=== PATIENT | female | born 1950 | race Caucasian/White ===

== ENCOUNTER → 2016-07-15 | Outpatient (CLI) | payer MEDICARE ==
--- NOTE | 2016-07-16 07:34 | MM ---
Reason for exam: screening (asymptomatic). Last mammogram was performed 9 years and 3 months ago. History: Patient is postmenopausal and is nulliparous. Family history of breast cancer in aunt. Benign excisional biopsy of the left breast. Physical Findings: A clinical breast exam by your physician is recommended on an annual basis and results should be correlated with mammographic findings. MG 3D Screening Mammo W/Cad Bilateral CC and MLO view(s) were taken. Prior study comparison: April 01, 2007, bilateral screening mammogram w/CAD. May 02, 2005, bilateral screening mammogram w/CAD. There are scattered fibroglandular densities. Asymmetric breast tissue in the right breast is stable. There is no discrete abnormality. ASSESSMENT: Negative, BI-RAD 1 RECOMMENDATION: Routine screening mammogram of both breasts in 1 year.
== END ==
LOC: RADMAMWWP 09:05
PROVIDERS: ATTEND Internal Medicine Geriatric Medicine
DX: Z12.31 Encounter for screening mammogram for malignant neoplasm of breast (principal)
CPT/HCPCS: 77063; G0202

== ENCOUNTER → 2017-07-16 | Outpatient (CLI) | payer MEDICARE ==
--- NOTE | 2017-07-16 10:55 | XR ---
EXAMINATION TYPE: XR Hip Complete RT DATE OF EXAM: 07/16/2017 COMPARISON: NONE HISTORY: Pain TECHNIQUE: 2 views submitted FINDINGS: There is no evidence of erosive change or acute fracture. Mild axial narrowing of the joint space. IMPRESSION: 1. Mild arthritic change. If symptoms persist consider MRI.
== END | disposition home or self-care (01) ==
LOC: RADXRMAIN 10:21
PROVIDERS: ATTEND Nurse Practitioner Family
DX: M16.11 Unilateral primary osteoarthritis, right hip (principal)
CPT/HCPCS: 73502

== ENCOUNTER → 2017-07-24 | Outpatient (CLI) | payer MEDICARE ==
--- NOTE | 2017-07-24 11:10 | US ---
EXAMINATION TYPE: US pelvic complete DATE OF EXAM: 07/24/2017 COMPARISON: NONE CLINICAL HISTORY: R10.84 Generalized abdominal pain. RLQ pain TECHNIQUE: Transabdominal (TA). Date of LMP: post menopausal EXAM MEASUREMENTS: Uterus: Not well seen Endometrial Stripe: not identified cm Right Ovary: not identified cm Left Ovary: not identified cm patient is nulliparous and has RLQ pain. Patient did not want transvaginal exam. 1. Uterus: not well visualized 2. Endometrium: not identified 3. Right Ovary: not identified 4. Left Ovary: not identified 5. Bilateral Adnexa: wnl 6. Posterior cul-de-sac: no free fluid * scanned RLQ over pain with and without valsalva, no definite abnormality noted. IMPRESSION: Limited exam as described, no significant abnormalities evident.
== END ==
LOC: RADUSWWP 07:22
PROVIDERS: ATTEND Internal Medicine Geriatric Medicine
DX: R10.84 Generalized abdominal pain (principal)
CPT/HCPCS: 76856

== ENCOUNTER 2017-08-01 17:10 | Emergency (ER) | payer MEDICARE ==
[2017-08-01 17:16] VITALS: TEMP 98.3
[2017-08-01] MEDS ORDERED: ONDANSETRON 4 MG/2 ML VIAL IVP STA (17:26)
[2017-08-01] MEDS ORDERED: SODIUM CHLORIDE 0.9% 1,000 ML IV ONE (17:26)
[2017-08-01] MEDS ORDERED: KETOROLAC 30 MG/ML 1 ML VIAL IVP STA (17:26)
--- NOTE | 2017-08-01 17:44 | ED ---
Abdominal Pain HPI - General Chief Complaint: Abdominal Pain Stated Complaint: poss kidney stone Time Seen by Provider: 08/01/17 17:16 Source: patient Mode of arrival: ambulatory Limitations: no limitations - History of Present Illness Initial Comments: Is a 66-year-old female who presents emergency department for right back and right lower quadrant abdominal pain. She states that she's been having issues with right lower quadrant abdominal pain for a couple of weeks however did not have anything in her back. She states that she did have a sudden onset of right -sided flank and lower back pain earlier today. She tried taking a [place] without any relief of her symptoms. She states that she's also feels very nauseated however has not vomited. She denies any diarrhea. She denies a history of kidney stones. She states that she's had an ultrasound done as an outpatient which was unremarkable. Also had an x-ray of her hip which was unremarkable. She denies any trauma to the area. No other acute complaints at this time. - Related Data Home Medications Medication Instructions Recorded Confirmed Albuterol Inhaler [Ventolin Hfa 1 - 2 puff INHALATION RT-Q6H PRN 08/01/17 Inhaler] Alendronate Sodium [Fosamax] 70 mg PO CARDONA 08/01/17 08/01/17 Atorvastatin [Lipitor] 80 mg PO HS 08/01/17 08/01/17 Budesonide/Formoterol Fumarate 2 puff INHALATION RT-BID 08/01/17 08/01/17 [Symbicort 160-4.5 Mcg Inhaler] Diltiazem HCl [Diltiazem 24Hr ER] 180 mg PO Q24H 08/01/17 08/01/17 Levothyroxine Sodium [Synthroid] 100 mcg PO DAILY 08/01/17 08/01/17 Previous Rx's Medication Instructions Recorded HYDROcodone/APAP 5-325MG [[place] 1 - 2 tab PO Q6HR PRN #10 tab 08/01/17 5-325] Allergies Allergy/AdvReac Type Severity Reaction Status Date / Time No Known Allergies Allergy Verified 08/01/17 17:22 Review of Systems ROS Statement: Those systems with pertinent positive or pertinent negative responses have been documented in the HPI. ROS Other: All systems not noted in ROS Statement are negative. Past Medical History Past Medical History: Hyperlipidemia, Thyroid Disorder History of Any Multi-Drug Resistant Organisms: None Reported Additional Past Surgical History / Comment(s): thyroidectomy Past Psychological History: No Psychological Hx Reported Smoking Status: Never smoker Past Alcohol Use History: None Reported Past Drug Use History: None Reported General Exam - General Exam Comments Initial Comments: Constitutional: Awake alert appears in mild distress Head: Normocephalic atraumatic Eyes: no conjunctival injection No scleral icterus EOMI Neck: No JVD Supple Heart: Regular rate rhythm normal S1-S2 no murmurs Lungs: Clear to auscultation bilaterally No wheezing No rales Abdomen: Soft nondistended nontender Extremities: Non edematous DP pulses intact Radial pulses intact Neuro: A&Ox3 No focal neurologic deficits Psych: Appropriate mood and affect Limitations: no limitations Course Vital Signs 08/01/17 08/01/17 17:13 18:59 Temperature 98.3 F Pulse Rate 79 66 Respiratory 22 18 Rate Blood Pressure 179/79 146/64 O2 Sat by Pulse 96 95 Oximetry Medical Decision Making - Medical Decision Making This is a 66-year-old female who presents emergency department for right lower back pain and right lower abdominal pain. CT of the abdomen was unremarkable for kidney stone. UA was negative. The rest of blood work is unremarkable. There was note of an L1 compression fracture. I'm concerned that her symptoms may be from nerve impingement. She was improved after morphine. I'm going to send her home on [facility]. She states to speak with Dr. Bateman at home about further imaging or testing regarding this compression fracture in her pain. Can return for any worsening or changing symptoms. All questions were answered. - Lab Data Result diagrams: 08/01/17 17:36 08/01/17 17:36 Lab Results 08/01/17 08/01/17 08/01/17 Range/Units 17:36 17:36 17:36 WBC 7.2 (3.8-10.6) k/uL RBC 4.77 (3.80-5.40) m/uL Hgb 13.3 (11.4-16.0) gm/dL Hct 40.9 (34.0-46.0) % MCV 85.7 (80.0-100.0) fL MCH 27.9 (25.0-35.0) pg MCHC 32.5 (31.0-37.0) g/dL RDW 14.0 (11.5-15.5) % Plt Count 297 (150-450) k/uL Neutrophils % 73 % Lymphocytes % 18 % Monocytes % 5 % Eosinophils % 2 % Basophils % 1 % Neutrophils # 5.3 (1.3-7.7) k/uL Lymphocytes # 1.3 (1.0-4.8) k/uL Monocytes # 0.3 (0-1.0) k/uL Eosinophils # 0.2 (0-0.7) k/uL Basophils # 0.1 (0-0.2) k/uL Sodium 142 (137-145) mmol/L Potassium 4.4 (3.5-5.1) mmol/L Chloride 106 (98-107) mmol/L Carbon Dioxide 25 (22-30) mmol/L Anion Gap 11 mmol/L BUN 22 H (7-17) mg/dL Creatinine 0.70 (0.52-1.04) mg/dL Est GFR (CKD-EPI)AfAm >90 (>60 ml/min/1.73 sqM) Est GFR (CKD-EPI)NonAf >90 (>60 ml/min/1.73 sqM) Glucose 115 H (74-99) mg/dL Calcium 9.2 (8.4-10.2) mg/dL Total Bilirubin 0.4 (0.2-1.3) mg/dL AST 25 (14-36) U/L ALT 28 (9-52) U/L Alkaline Phosphatase 88 (38-126) U/L Total Protein 7.1 (6.3-8.2) g/dL Albumin 4.0 (3.5-5.0) g/dL Urine Color Yellow Urine Appearance Clear (Clear) Urine pH 5.0 (5.0-8.0) Ur Specific Edison 1.019 (1.001-1.035) Urine Protein Negative (Negative) Urine Glucose (UA) Negative (Negative) Urine Ketones Negative (Negative) Urine Blood Negative (Negative) Urine Nitrite Negative (Negative) Urine Bilirubin Negative (Negative) Urine Urobilinogen <2.0 (<2.0) mg/dL Ur Leukocyte Esterase Negative (Negative) Disposition Clinical Impression: Abdominal pain Disposition: HOME SELF-CARE Condition: Stable Instructions: Vertebral Compression Fracture (ED), Abdominal Pain (ED) Prescriptions: HYDROcodone/APAP 5-325MG [[place] 5-325] 1 - 2 tab PO Q6HR PRN #10 tab PRN Reason: Pain Referrals: Elpidio Bateman MD [Primary Care Provider] - 1-2 days
[2017-08-01 17:49] LABS: Basophils # (A) 0.1 k/uL (0-0.2); Basophils % (A) 1 %; Eosinophils # (A) 0.2 k/uL (0-0.7); Eosinophils % (A) 2 %; HCT 40.9 % (34.0-46.0); HGB 13.3 gm/dL (11.4-16.0); Lymphocytes # (A) 1.3 k/uL (1.0-4.8); Lymphocytes % (A) 18 %; MCH 27.9 pg (25.0-35.0); MCHC 32.5 g/dL (31.0-37.0); MCV 85.7 fL (80.0-100.0); Mean Platelet Volume 7.6; Monocytes # (A) 0.3 k/uL (0-1.0); Monocytes % (A) 5 %; Neutrophils # (A) 5.3 k/uL (1.3-7.7); Neutrophils % (A) 73 %; Platelet Count 297 k/uL (150-450); RBC 4.77 m/uL (3.80-5.40); WBC 7.2 k/uL (3.8-10.6)
[2017-08-01 17:50] LABS: Appearance,Urine Clear (Clear); Bilirubin,Urine Negative (Negative); Blood,Urine Negative (Negative); Color,Urine Yellow; Glucose,Urine (UA) Negative (Negative); Ketones,Urine Negative (Negative); Leukocyte Esterase,Urine Negative (Negative); Nitrite,Urine Negative (Negative); Protein,Urine Negative (Negative); Specific Gravity,Urine 1.019 (1.001-1.035); Urobilinogen,Urine <2.0 mg/dL (<2.0)
[2017-08-01 18:14] LABS: ALT 28 U/L (9-52); AST 25 U/L (14-36); Alkaline Phosphatase 88 U/L (38-126); Anion Gap 11 mmol/L; Blood Urea Nitrogen 22 mg/dL (7-17); Calcium 9.2 mg/dL (8.4-10.2); Carbon Dioxide 25 mmol/L (22-30); Chloride 106 mmol/L (98-107); Glucose 115 mg/dL (74-99); Potassium 4.4 mmol/L (3.5-5.1); Sodium 142 mmol/L (137-145); Total Bilirubin 0.4 mg/dL (0.2-1.3); Total Protein 7.1 g/dL (6.3-8.2)
--- NOTE | 2017-08-01 18:36 | CT ---
EXAMINATION TYPE: CT abdomen pelvis wo con DATE OF EXAM: 08/01/2017 COMPARISON: NONE HISTORY: Right side flank pain CT DLP: 921 mGycm Automated exposure control for dose reduction was used. TECHNIQUE: Helical acquisition of images was performed from the lung bases through the pelvis. FINDINGS: Lung bases are clear. There is no pleural effusion. Heart size is normal. There are small hiatal olvin ia. There are clips at the gastroesophageal junction. Liver shows no focal defect. Bile ducts are not dilated. There are clips from cholecystectomy. Spleen appears normal. There is no pancreatic mass. Abdominal aorta is atheromatous. There is some bulkiness of the right adrenal gland. Kidneys have normal size. 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 There is sli ght fullness of the left renal pelvis but the ureters do not appear dilated. There is also some fulln ess of the right renal pelvis. The right ureter is not dilated. There are phleboliths in the pelvis. There is a 2 cm calcified uterine fibroid. There is no free fluid in the pelvis. Bladder distends smo othly. I see no definite ureteral stone. I see no intestinal wall thickening. There are no dilated loops. Appendix is not definitely seen. The re is no sign of appendicitis. I see no pelvic mass. There is mild lumbar dextroscoliosis. There are spondylotic changes in the lumb ar spine. There is 10% depression of the superior plate of L1 consistent with an old fracture. IMPRESSION: ATHEROSCLEROTIC VASCULAR DISEASE. NO SIGN OF APPENDICITIS. THERE IS SOME FULLNESS OF THE RENAL COLLEC TING SYSTEMS BUT NO EVIDENCE OF A RENAL OR URETERAL CALCULUS. URETERS ARE NOT DILATED. CALCIFIED UTERINE FIBROID. OLD MILD L1 COMPRESSION FRACTURE. THERE IS SOME FULLNESS OF THE RIGHT ADRE NAL GLAND CONSISTENT WITH HYPERPLASIA. Hiatal hernia.
[2017-08-01] MEDS ORDERED: MORPHINE SULFATE/PF 10MG/10ML VL IVP STA ×2 (18:47→18:49)
[2017-08-01 19:00] VITALS: BP 146/64; PULSE 66; RESP 18
== END 2017-08-01 19:55 | disposition home or self-care (01) ==
LOC: EC 17:10
DX: R10.31 Right lower quadrant pain (principal); M54.5 Low back pain; R11.0 Nausea; E07.9 Disorder of thyroid, unspecified; E78.5 Hyperlipidemia, unspecified; Z79.51 Long term (current) use of inhaled steroids; Z79.899 Other long term (current) drug therapy
CPT/HCPCS: 99284; 96374; 96375 ×2; 96361; 36415; 80053; 85025; 81003; 74176; J2405; J1885; J2270

== ENCOUNTER → 2018-01-11 | Outpatient (CLI) | payer MEDICARE ==
--- NOTE | 2018-01-11 09:42 | MM ---
Reason for exam: screening (asymptomatic). Last mammogram was performed 1 year and 6 months ago. History: Patient is postmenopausal and is nulliparous. Family history of breast cancer in aunt. Benign excisional biopsy of the left breast. Physical Findings: A clinical breast exam by your physician is recommended on an annual basis and results should be correlated with mammographic findings. MG Screening Mammo w CAD Bilateral CC and MLO view(s) were taken. Prior study comparison: July 15, 2016, bilateral MG 3d screening mammo w/cad. April 01, 2007, bilateral screening mammogram w/CAD. There are scattered fibroglandular densities. There is no discrete abnormality. No significant changes when compared with prior studies. ASSESSMENT: Negative, BI-RAD 1 RECOMMENDATION: Routine screening mammogram of both breasts in 1 year.
--- NOTE | 2018-01-11 13:36 | BD ---
EXAMINATION TYPE: Axial Bone Density DATE OF EXAM: 01/11/2018 COMPARISON: 2006 CLINICAL HISTORY: age related osteoporosis Height: 5 3 1/2 Weight: 177 FRAX RISK QUESTIONS: Secondary Osteoporosis: 3. Menopause before 45: y RISK FACTORS HISTORY OF: Postmenopausal woman: y MEDICATIONS: Thyroid Medications: Which medication: Synthroid How Lon years Osteoporosis Medications: Which medication: Fosamax How Lon years Additional Medications: cholesterol , heart Additional History: EXAM MEASUREMENTS: Bone mineral densitometry was performed using the [employer] (Proprietary) System. Bone mineral density as measured about the Lumbar spine is: ----- L1-L4(G/cm2): 1.061 T Score Values are as follows: ----- L2: -1.1 ----- L3: -0.4 ----- L4: -0.9 ----- L1-L4: -1.0 Bone mineral density has: Increased 13.1% since study of: 04/01/07 Bone mineral density about the R hip (g/cm2): 0.740 Bone mineral density about the L hip (g/cm2): 0.779 T Score values are as follows: -----R Neck: -1.1 -----L Neck: -1.9 -----R Total: -2.3 -----L Total: -1.7 Bone mineral density has: Decreased -4.2% since study of: 04/01/2007 IMPRESSION: Osteopenia NOTE: T-SCORE=SD OF THE YOUNG ADULT MEAN.
== END | disposition home or self-care (01) ==
LOC: RADMAMWWP 06:46
PROVIDERS: ATTEND Internal Medicine Geriatric Medicine
DX: Z12.31 Encounter for screening mammogram for malignant neoplasm of breast (principal); M81.0 Age-related osteoporosis without current pathological fracture; M85.80 Other specified disorders of bone density and structure, unspecified site
CPT/HCPCS: 77067; 77080

== ENCOUNTER 2018-01-17 13:17 | Emergency (ER) | payer MEDICARE ==
[2018-01-17 13:26] VITALS: TEMP 98.6
[2018-01-17 13:42] VITALS: RESP 18
[2018-01-17] MEDS ORDERED: IPRATROPIUM-ALBUTEROL 3 ML NEB INHALATION STA (13:46)
--- NOTE | 2018-01-17 13:49 | ED ---
General Adult HPI - General Chief complaint: Shortness of Breath Stated complaint: SOB Time Seen by Provider: 01/17/18 13:42 Source: patient, RN notes reviewed Mode of arrival: wheelchair Limitations: no limitations - History of Present Illness Initial comments: Patient is a pleasant 67-year-old female presenting to the emergency Department with complaints of dyspnea. Onset was last night. Symptoms continue or worsen today. Patient does have some discomfort of her left ribs. Patient states discomfort is with taking deep breaths or movement only. Patient did have a fall there 5 days ago. Patient states discomfort was only mild however seems worse since yesterday. Mild cough. No fevers. No anterior chest discomfort. - Related Data Home Medications Medication Instructions Recorded Confirmed Albuterol Inhaler [Ventolin Hfa 1 - 2 puff INHALATION RT-Q6H PRN 08/01/17 Inhaler] Alendronate Sodium [Fosamax] 70 mg PO CARDONA 08/01/17 01/17/18 Atorvastatin [Lipitor] 80 mg PO HS 08/01/17 01/17/18 Budesonide/Formoterol Fumarate 2 puff INHALATION RT-BID 08/01/17 01/17/18 [Symbicort 160-4.5 Mcg Inhaler] Diltiazem HCl [Diltiazem 24Hr ER] 180 mg PO DAILY 08/01/17 01/17/18 Levothyroxine Sodium [Synthroid] 100 mcg PO DAILY 08/01/17 01/17/18 Aspirin [Adult Low Dose Aspirin EC] 81 mg PO DAILY 01/17/18 01/17/18 Calcium Carbonate/Vitamin D3 1 cap PO DAILY 01/17/18 01/17/18 [Calcium 600-Vit D3 500 Softgel] Gabapentin [Neurontin] 200 mg PO BID 01/17/18 01/17/18 Previous Rx's Medication Instructions Recorded Azithromycin [Zithromax Z-pack] 250 mg PO DIRECTED #6 tab 01/17/18 Allergies Allergy/AdvReac Type Severity Reaction Status Date / Time No Known Allergies Allergy Verified 01/17/18 14:21 Review of Systems ROS Statement: Those systems with pertinent positive or pertinent negative responses have been documented in the HPI. ROS Other: All systems not noted in ROS Statement are negative. Constitutional: Denies: fever Eyes: Denies: eye pain ENT: Denies: ear pain Respiratory: Reports: dyspnea Cardiovascular: Denies: palpitations Endocrine: Denies: fatigue Gastrointestinal: Denies: abdominal pain Genitourinary: Denies: dysuria Musculoskeletal: Denies: back pain Skin: Denies: lesions Past Medical History Past Medical History: COPD, Hyperlipidemia, Thyroid Disorder History of Any Multi-Drug Resistant Organisms: None Reported Additional Past Surgical History / Comment(s): thyroidectomy Past Psychological History: No Psychological Hx Reported Smoking Status: Never smoker Past Alcohol Use History: None Reported Past Drug Use History: None Reported General Exam Limitations: no limitations General appearance: alert, in no apparent distress Head exam: Present: atraumatic, normocephalic Eye exam: Present: normal appearance Neck exam: Present: normal inspection Respiratory exam: Present: normal lung sounds bilaterally, chest wall tenderness (Mild tenderness left lateral ribs with some ecchymosis) Cardiovascular Exam: Present: regular rate, normal rhythm Expanded Peripheral pulses: 2+: Radial (R), Radial (L), Dorsalis Pedis (R), Dorsalis Pedis (L) GI/Abdominal exam: Present: soft. Absent: tenderness Extremities exam: Present: pedal edema. Absent: calf tenderness Neurological exam: Present: alert Psychiatric exam: Present: normal affect, normal mood Skin exam: Present: normal color Course Vital Signs 01/17/18 01/17/18 01/17/18 13:23 13:38 13:43 Temperature 98.6 F Pulse Rate 85 83 Respiratory 16 18 18 Rate Blood Pressure 124/77 143/85 O2 Sat by Pulse 94 L 98 Oximetry 01/17/18 01/17/18 14:02 14:14 Temperature Pulse Rate 79 79 Respiratory Rate Blood Pressure O2 Sat by Pulse Oximetry EKG Findings - EKG Comments: EKG Findings:: Sinus rhythm at 78. NM 110. QRS 134. QT 406. QTc 462. Right axis. Rate bundle-branch block. No acute ST change. Medical Decision Making - Medical Decision Making Patient reevaluated and improved. No dyspnea at this time. Patient updated on results. Patient is comfortable with discharge home. Patient does not feel she needs steroids. - Lab Data Result diagrams: 01/17/18 14:00 01/17/18 14:00 Lab Results 01/17/18 01/17/18 01/17/18 Range/Units 14:00 14:00 14:00 WBC 6.5 (3.8-10.6) k/uL RBC 4.79 (3.80-5.40) m/uL Hgb 12.6 (11.4-16.0) gm/dL Hct 41.6 (34.0-46.0) % MCV 86.8 (80.0-100.0) fL MCH 26.4 (25.0-35.0) pg MCHC 30.4 L (31.0-37.0) g/dL RDW 14.5 (11.5-15.5) % Plt Count 235 (150-450) k/uL Neutrophils % 69 % Lymphocytes % 20 % Monocytes % 6 % Eosinophils % 2 % Basophils % 1 % Neutrophils # 4.5 (1.3-7.7) k/uL Lymphocytes # 1.3 (1.0-4.8) k/uL Monocytes # 0.4 (0-1.0) k/uL Eosinophils # 0.1 (0-0.7) k/uL Basophils # 0.1 (0-0.2) k/uL PT (9.0-12.0) sec INR (<1.2) APTT (22.0-30.0) sec Sodium 141 (137-145) mmol/L Potassium 4.4 (3.5-5.1) mmol/L Chloride 108 H (98-107) mmol/L Carbon Dioxide 24 (22-30) mmol/L Anion Gap 9 mmol/L BUN 23 H (7-17) mg/dL Creatinine 0.97 (0.52-1.04) mg/dL Est GFR (CKD-EPI)AfAm 70 (>60 ml/min/1.73 sqM) Est GFR (CKD-EPI)NonAf 61 (>60 ml/min/1.73 sqM) Glucose 117 H (74-99) mg/dL Calcium 8.7 (8.4-10.2) mg/dL Total Bilirubin 0.3 (0.2-1.3) mg/dL AST 23 (14-36) U/L ALT 20 (9-52) U/L Alkaline Phosphatase 86 (38-126) U/L Total Creatine Kinase 147 H (30-135) U/L CK-MB (CK-2) 2.1 (0.0-2.4) ng/mL CK-MB (CK-2) Rel Index 1.4 Troponin I <0.012 (0.000-0.034) ng/mL NT-Pro-B Natriuret Pep pg/mL Total Protein 6.4 (6.3-8.2) g/dL Albumin 3.6 (3.5-5.0) g/dL 01/17/18 01/17/18 Range/Units 14:00 14:00 WBC (3.8-10.6) k/uL RBC (3.80-5.40) m/uL Hgb (11.4-16.0) gm/dL Hct (34.0-46.0) % MCV (80.0-100.0) fL MCH (25.0-35.0) pg MCHC (31.0-37.0) g/dL RDW (11.5-15.5) % Plt Count (150-450) k/uL Neutrophils % % Lymphocytes % % Monocytes % % Eosinophils % % Basophils % % Neutrophils # (1.3-7.7) k/uL Lymphocytes # (1.0-4.8) k/uL Monocytes # (0-1.0) k/uL Eosinophils # (0-0.7) k/uL Basophils # (0-0.2) k/uL PT 9.7 (9.0-12.0) sec INR 1.0 (<1.2) APTT 22.2 (22.0-30.0) sec Sodium (137-145) mmol/L Potassium (3.5-5.1) mmol/L Chloride (98-107) mmol/L Carbon Dioxide (22-30) mmol/L Anion Gap mmol/L BUN (7-17) mg/dL Creatinine (0.52-1.04) mg/dL Est GFR (CKD-EPI)AfAm (>60 ml/min/1.73 sqM) Est GFR (CKD-EPI)NonAf (>60 ml/min/1.73 sqM) Glucose (74-99) mg/dL Calcium (8.4-10.2) mg/dL Total Bilirubin (0.2-1.3) mg/dL AST (14-36) U/L ALT (9-52) U/L Alkaline Phosphatase (38-126) U/L Total Creatine Kinase (30-135) U/L CK-MB (CK-2) (0.0-2.4) ng/mL CK-MB (CK-2) Rel Index Troponin I (0.000-0.034) ng/mL NT-Pro-B Natriuret Pep 191 pg/mL Total Protein (6.3-8.2) g/dL Albumin (3.5-5.0) g/dL - Radiology Data Radiology results: image reviewed (Left chest x-ray and rib x-ray shows no definitive fracture. Minimal infiltrate left base.) Disposition Clinical Impression: Pneumonia Disposition: HOME SELF-CARE Condition: Stable Instructions: Pneumonia (ED) Additional Instructions: Please follow-up to primary care physician in the next day or 2 for recheck. Return for fevers, difficult to breathing, increased pain, worsening or change in symptoms or other concerns. Prescriptions: Azithromycin [Zithromax Z-pack] 250 mg PO DIRECTED #6 tab Is patient prescribed a controlled substance at d/c from ED?: No Referrals: Elpidio Bateman MD [Primary Care Provider] - 1-2 days Time of Disposition: 15:09
[2018-01-17 14:16] LABS: Basophils # (A) 0.1 k/uL (0-0.2); Basophils % (A) 1 %; Eosinophils # (A) 0.1 k/uL (0-0.7); Eosinophils % (A) 2 %; HCT 41.6 % (34.0-46.0); HGB 12.6 gm/dL (11.4-16.0); Lymphocytes # (A) 1.3 k/uL (1.0-4.8); Lymphocytes % (A) 20 %; MCH 26.4 pg (25.0-35.0); MCHC 30.4 g/dL (31.0-37.0); MCV 86.8 fL (80.0-100.0); Mean Platelet Volume 6.9; Monocytes # (A) 0.4 k/uL (0-1.0); Monocytes % (A) 6 %; Neutrophils # (A) 4.5 k/uL (1.3-7.7); Neutrophils % (A) 69 %; Platelet Count 235 k/uL (150-450); RBC 4.79 m/uL (3.80-5.40); RDW 14.5 % (11.5-15.5); WBC 6.5 k/uL (3.8-10.6)
[2018-01-17 14:26] LABS: Albumin 3.6 g/dL (3.5-5.0); Calcium 8.7 mg/dL (8.4-10.2); Potassium 4.4 mmol/L (3.5-5.1); Total Bilirubin 0.3 mg/dL (0.2-1.3); Total Protein 6.4 g/dL (6.3-8.2)
[2018-01-17 14:30] LABS: Partial Thromboplastin Time 22.2 sec (22.0-30.0); Prothrombin Time 9.7 sec (9.0-12.0)
[2018-01-17 14:36] LABS: Creatine Kinase 147 U/L (30-135)
[2018-01-17 14:47] LABS: Creatine Kinase MB 2.1 ng/mL (0.0-2.4); Troponin I <0.012 ng/mL (0.000-0.034)
--- NOTE | 2018-01-17 15:02 | XR ---
EXAMINATION TYPE: XR chest 2V DATE OF EXAM: 01/17/2018 COMPARISON: NONE HISTORY: Left rib pain. Short of breath TECHNIQUE: Frontal and lateral views of the chest are obtained. FINDINGS: Heart and mediastinum are within normal limits. There is no heart failure. Costophrenic an gles are clear. There are chest leads. The bony thorax is intact. There is slight coarsening the lung markings at the left lung base. IMPRESSION: Minimal interstitial infiltrate in the left lower lobe at the lung base. No rib fracture seen. Normal heart.
--- NOTE | 2018-01-17 15:03 | XR ---
EXAMINATION TYPE: XR ribs LT DATE OF EXAM: 01/17/2018 COMPARISON: NONE HISTORY: Left rib pain TECHNIQUE: 4 views FINDINGS: There is no pleural effusion or pneumothorax. I see no rib fracture. There is minimal inter stitial density at the left lung base. IMPRESSION: Minimal interstitial density. No rib fracture seen.
[2018-01-17] MEDS ORDERED: AZITHROMYCIN 500 MG TAB PO STA (15:10)
[2018-01-17 15:24] VITALS: BP 127/71; PULSE 73
== END 2018-01-17 15:24 | disposition home or self-care (01) ==
LOC: EC 13:17
DX: J18.9 Pneumonia, unspecified organism (principal); J44.0 Chronic obstructive pulmonary disease with (acute) lower respiratory infection; E78.5 Hyperlipidemia, unspecified; Z79.51 Long term (current) use of inhaled steroids; Z79.82 Long term (current) use of aspirin; Z79.899 Other long term (current) drug therapy
CPT/HCPCS: 36415; 71046; 80053; 82550; 82553; 83880; 84484; 85025; 85610; 85730; 93005; 94640; 99285

== ENCOUNTER 2018-02-20 14:56 | Inpatient (IN) | payer MEDICARE ==
[2018-02-20] MEDS ORDERED: ASPIRIN 81 MG PO STA (15:32)
--- NOTE | 2018-02-20 15:34 | ED ---
Chest Pain HPI - General Chief Complaint: Chest Pain Stated Complaint: Chest pain Time Seen by Provider: 02/20/18 15:17 Source: patient, RN notes reviewed Mode of arrival: ambulatory Limitations: no limitations - History of Present Illness Initial Comments: This is a 67-year-old female presents with complaints of shortness of breath exertional dyspnea is been getting progressively worse this past week. She also complains of increased edema to her lower extremities. He also had chest pain across the anterior chest with some radiation to left shoulder. She is unable to quantify the pain any more than a discomfort. No fevers chills nausea vomiting sweats no cough no phlegm production. The patient has just recently got back from a trip to [place]. She's had several other shorter trips by automobile also recently. MD Complaint: chest pain, other - Related Data Home Medications Medication Instructions Recorded Confirmed Albuterol Inhaler [Ventolin Hfa 1 - 2 puff INHALATION RT-Q6H PRN 08/01/17 Inhaler] Alendronate Sodium [Fosamax] 70 mg PO CARDONA 08/01/17 02/20/18 Atorvastatin [Lipitor] 80 mg PO HS 08/01/17 02/20/18 Budesonide/Formoterol Fumarate 2 puff INHALATION RT-BID 08/01/17 02/20/18 [Symbicort 160-4.5 Mcg Inhaler] Diltiazem HCl [Diltiazem 24Hr ER] 180 mg PO DAILY 08/01/17 02/20/18 Levothyroxine Sodium [Synthroid] 100 mcg PO DAILY 08/01/17 02/20/18 Aspirin [Adult Low Dose Aspirin EC] 81 mg PO DAILY 01/17/18 02/20/18 Calcium Carbonate/Vitamin D3 1 cap PO DAILY 01/17/18 02/20/18 [Calcium 600-Vit D3 500 Softgel] Gabapentin [Neurontin] 200 mg PO BID 01/17/18 02/20/18 Allergies Allergy/AdvReac Type Severity Reaction Status Date / Time No Known Allergies Allergy Verified 02/20/18 15:34 Review of Systems ROS Statement: Those systems with pertinent positive or pertinent negative responses have been documented in the HPI. ROS Other: All systems not noted in ROS Statement are negative. EKG Findings - EKG Results: EKG: interpreted by ANDRA, sinus rhythm (Sinus rhythm a 73. Interval 120 QRS duration 126 QT since QTC 460/458 red bundle-branch block left posterior fascicular block this is compared with an EKG dated ) Past Medical History Past Medical History: COPD, Hyperlipidemia, Thyroid Disorder History of Any Multi-Drug Resistant Organisms: None Reported Additional Past Surgical History / Comment(s): thyroidectomy Past Psychological History: No Psychological Hx Reported Smoking Status: Never smoker Past Alcohol Use History: None Reported Past Drug Use History: None Reported General Exam - General Exam Comments Initial Comments: This is a well-developed well-nourished awake alert oriented 3 female Limitations: no limitations General appearance: alert, in no apparent distress Head exam: Present: atraumatic, normocephalic, normal inspection Eye exam: Present: normal appearance, PERRL, EOMI. Absent: scleral icterus, conjunctival injection, periorbital swelling ENT exam: Present: normal exam, mucous membranes moist Neck exam: Present: normal inspection. Absent: tenderness, meningismus, lymphadenopathy Respiratory exam: Present: decreased breath sounds. Absent: respiratory distress, wheezes, rales, rhonchi, stridor Cardiovascular Exam: Present: regular rate, normal rhythm, normal heart sounds. Absent: systolic murmur, diastolic murmur, rubs, gallop, clicks GI/Abdominal exam: Present: soft, normal bowel sounds. Absent: distended, tenderness, guarding, rebound, rigid Extremities exam: Present: full ROM, normal capillary refill, pedal edema. Absent: tenderness, joint swelling, calf tenderness Back exam: Present: normal inspection Neurological exam: Present: alert, oriented X3, CN II-XII intact Psychiatric exam: Present: normal affect, normal mood Skin exam: Present: warm, dry, intact, normal color. Absent: rash Course Vital Signs 02/20/18 15:03 Temperature 98.5 F Pulse Rate 84 Respiratory 18 Rate Blood Pressure 167/93 O2 Sat by Pulse 95 Oximetry Chest Pain MDM - MDM I did review the imaging and report no acute findings patient will be admitted for evaluation of chest pain and dyspnea the dyspnea is partially likely due to COPD. D-dimer is pending Critical Care Time Critical Care Time: Yes Critical Care Time: 31 minutes of critical care time includes initial presentation with history physical labs x-rays several reevaluation the patient. Discussed with patient family regarding findings discussed with the main physician admission orders and documentation of the above Disposition Clinical Impression: Unstable angina pectoris, Chronic obstructive pulmonary disease Disposition: ADMITTED IP TO THIS HOSP Condition: Stable Referrals: Elpidio Bateman MD [Primary Care Provider] - 1-2 days
[2018-02-20 16:08] LABS: HCT 38.8 % (34.0-46.0); HGB 12.6 gm/dL (11.4-16.0); MCH 27.4 pg (25.0-35.0); MCHC 32.6 g/dL (31.0-37.0); MCV 84.2 fL (80.0-100.0); Mean Platelet Volume 8.5; Platelet Count 202 k/uL (150-450); RDW 15.5 % (11.5-15.5); WBC 4.8 k/uL (3.8-10.6)
[2018-02-20 16:10] LABS: ALT 34 U/L (9-52); AST 30 U/L (14-36); Albumin 4.1 g/dL (3.5-5.0); Alkaline Phosphatase 103 U/L (38-126); Anion Gap 9 mmol/L; Blood Urea Nitrogen 16 mg/dL (7-17); Calcium 9.5 mg/dL (8.4-10.2); Carbon Dioxide 26 mmol/L (22-30); Chloride 106 mmol/L (98-107); Glucose 79 mg/dL (74-99); Potassium 4.1 mmol/L (3.5-5.1); Sodium 141 mmol/L (137-145); Total Bilirubin 0.5 mg/dL (0.2-1.3); Total Protein 6.9 g/dL (6.3-8.2)
[2018-02-20 16:18] LABS: Creatine Kinase 156 U/L (30-135)
[2018-02-20] MEDS ORDERED: IPRATROPIUM-ALBUTEROL 3 ML NEB INHALATION STA (16:20)
[2018-02-20 16:26] LABS: Eosinophils # (M) 0.14 k/uL (0-0.7); Lymphocytes # (M) 1.39 k/uL (1.0-4.8); Monocytes # (M) 0.24 k/uL (0-1.0); Neutrophils # (M) 3.02 k/uL (1.3-7.7); Neutrophils % (M) 63 %; Nucleated Red Blood Cells 0 /100 WBC (0-0); Total Cells Counted 100
[2018-02-20 16:32] LABS: Creatine Kinase MB 2.7 ng/mL (0.0-2.4); Troponin I <0.012 ng/mL (0.000-0.034)
--- NOTE | 2018-02-20 16:33 | XR ---
EXAMINATION TYPE: XR chest 2V DATE OF EXAM: 02/20/2018 COMPARISON: 01/17/2018 HISTORY: 67-year-old female with chest pain and TECHNIQUE: PA and lateral views FINDINGS: The heart is normal size. Aorta and pulmonary vasculature are within normal limits. Some strandy atel ectasis in the left lower lung. Hyperinflation. No consolidation or pleural effusion. IMPRESSION: COPD without acute cardiopulmonary process.
[2018-02-20] MEDS ORDERED: NITROGLYCERIN SL TABS 0.4 MG TAB SUBLINGUAL PRN (16:52)
[2018-02-20] MEDS ORDERED: HEPARIN SODIUM,PORCINE 5,000 UNIT/ML 1 ML VIAL IV ONE (16:52)
[2018-02-20 17:16] LABS: Partial Thromboplastin Time 23.2 sec (22.0-30.0); Prothrombin Time 9.8 sec (9.0-12.0)
[2018-02-20 17:22] LABS: D-Dimer 0.66 mg/L FEU (<0.60)
[2018-02-20] MEDS: SODIUM CHLORIDE 0.9% 1,000 ML IV SCH (17:52)
[2018-02-20] MEDS: HEPARIN SOD,PORK IN 0.45% NACL 25,000 UNIT in 0.45% NACL 1 500ML.BAG IV SCH (17:54)
[2018-02-20] MEDS: NITROGLYCERIN OINT 1 INCH/GM PACKET TOPICAL SCH (19:17)
[2018-02-20] MEDS ORDERED: IPRATROPIUM-ALBUTEROL 3 ML NEB INHALATION SCH (20:00)
[2018-02-20] MEDS: SYMBICORT 160-4.5 MCG INHALER INHALATION SCH (20:52)
[2018-02-20] MEDS ORDERED: IPRATROPIUM-ALBUTEROL 3 ML NEB INHALATION PRN (20:59)
[2018-02-20 22:14] LABS: Creatine Kinase 123 U/L (30-135)
[2018-02-20 22:28] LABS: Troponin I <0.012 ng/mL (0.000-0.034)
[2018-02-21] MEDS: ATORVASTATIN 80 MG TAB PO SCH ×2 (00:05→20:19)
[2018-02-21] MEDS: NITROGLYCERIN OINT 1 INCH/GM PACKET TOPICAL SCH ×5 (00:05→23:03)
[2018-02-21] MEDS: GABAPENTIN 100 MG CAP PO SCH ×3 (00:05→20:19)
[2018-02-21 01:43] LABS: Cholesterol 169 mg/dL (<200); HDL Cholesterol 90 mg/dL (40-60); LDL Cholesterol,Calculated 68 mg/dL (0-99); Triglycerides 53 mg/dL (<150)
[2018-02-21 04:32] LABS: Creatine Kinase 117 U/L (30-135)
[2018-02-21 04:45] LABS: Creatine Kinase MB 1.8 ng/mL (0.0-2.4); Troponin I <0.012 ng/mL (0.000-0.034)
[2018-02-21] MEDS ORDERED: PATIENT'S OWN MED (Alendronate Sodium [Fosamax] 70 MG) PO SCH (06:00)
[2018-02-21] MEDS: IPRATROPIUM-ALBUTEROL 3 ML NEB INHALATION SCH ×3 (07:44→19:20)
[2018-02-21] MEDS: SYMBICORT 160-4.5 MCG INHALER INHALATION SCH ×2 (07:44→19:20)
[2018-02-21] MEDS: ASPIRIN 325 MG TAB PO SCH (08:19)
[2018-02-21] MEDS: DILTIAZEM CD 180 MG CAP.ER.24H PO SCH (08:19)
[2018-02-21] MEDS: LEVOTHYROXINE 100 MCG TAB PO SCH (08:19)
[2018-02-21 10:54] VITALS: BMI 28.3
--- NOTE | 2018-02-21 12:19 | P.CRDCN ---
History of Present Illness Consult date: 02/21/18 Chief complaint: Chest pain History of present illness: This is a pleasant 67-year-old female patient with a past medical history significant for hypertension and dyslipidemia presented to the emergency room complaining of chest discomfort. The patient just came from a long trip from [place]. She was in her usual state of health until yesterday when she was at home and started experiencing discomfort, across the chest, as a sharp kind of discomfort, with some radiation to the neck. No associated symptoms of shortness of breath, sweating, nausea or vomiting, or syncope. The patient is not aware of any prior history of coronary artery disease. She does have hypertension as well as dyslipidemia. She stated that she underwent a heart catheterization about 10 years ago and she was told that she has problem in the "bottom of the heart". She is to be seen by Dr. Schroeder in the past but currently she follows with Dr. Espinosa. The patient does not smoke. She does have fairly significant family history of coronary artery disease was multiple brothers with CAD. The patient was ruled out for acute coronary event. The EKG showed sinus rhythm was RBBB. 3 sets of cardiac enzymes were checked and came in to be unremarkable. The chest x-ray did not show any acute abnormalities. She was ruled out also for PE. She has been maintaining normal blood pressure as well as normal heart rate wire she is here. The patient was seen and evaluated in the emergency room. When I examined the patient, she stated that she still have very mild ongoing chest discomfort. I did recommend proceeding with a stress test and I did recommend getting the stress sestamibi done as an inpatient because of the chest discomfort. Past Medical History Past Medical History: COPD, Hyperlipidemia, Thyroid Disorder Additional Past Medical History / Comment(s): Thyroid removed History of Any Multi-Drug Resistant Organisms: None Reported Additional Past Surgical History / Comment(s): thyroidectomy, gallbladder removed, right knee athroscopy,. Plastic tubal Past Anesthesia/Blood Transfusion Reactions: No Reported Reaction Past Psychological History: No Psychological Hx Reported Smoking Status: Former smoker Past Alcohol Use History: None Reported Past Drug Use History: None Reported - Past Family History Father Additional Family Medical History / Comment(s): Father had cardiac history, two open heart procedures Brother(s) Family Medical History: Myocardial Infarction ([place]) Additional Family Medical History / Comment(s): Brother is decreased from [place] Medications and Allergies Home Medications Medication Instructions Recorded Confirmed Type Albuterol Inhaler [Ventolin Hfa 1 - 2 puff INHALATION RT-Q6H PRN 08/01/17 History Inhaler] Alendronate Sodium [Fosamax] 70 mg PO HERNÁNDEZ 08/01/17 02/20/18 History Atorvastatin [Lipitor] 80 mg PO HS 08/01/17 02/20/18 History Budesonide/Formoterol Fumarate 2 puff INHALATION RT-BID 08/01/17 02/20/18 History [Symbicort 160-4.5 Mcg Inhaler] Diltiazem HCl [Diltiazem 24Hr ER] 180 mg PO DAILY 08/01/17 02/20/18 History Levothyroxine Sodium [Synthroid] 100 mcg PO DAILY 08/01/17 02/20/18 History Aspirin [Adult Low Dose Aspirin EC] 81 mg PO DAILY 01/17/18 02/20/18 History Calcium Carbonate/Vitamin D3 1 cap PO DAILY 01/17/18 02/20/18 History [Calcium 600-Vit D3 500 Softgel] Gabapentin [Neurontin] 200 mg PO BID 01/17/18 02/20/18 History Allergies Allergy/AdvReac Type Severity Reaction Status Date / Time No Known Allergies Allergy Verified 02/20/18 15:34 Physical Exam Vitals: Vital Signs Temp Pulse Pulse Resp BP BP Pulse Ox 02/21/18 10:53 18 137/81 96 02/21/18 08:00 98.7 F 71 18 137/81 96 02/21/18 07:56 72 02/21/18 07:46 68 02/21/18 07:15 98.4 F 70 18 120/77 96 02/21/18 06:29 76 18 120/76 97 02/21/18 03:09 96 02/21/18 03:05 72 18 143/80 93 L 02/21/18 01:37 75 18 141/73 95 02/21/18 00:07 98.2 F 72 18 141/73 95 02/20/18 22:47 98.2 F 78 18 131/71 94 L 02/20/18 20:18 98.2 F 66 18 151/80 96 02/20/18 20:00 98.1 F 71 18 137/81 96 02/20/18 19:13 98.2 F 74 18 135/81 95 02/20/18 17:50 77 18 167/91 95 02/20/18 17:03 66 02/20/18 16:53 66 02/20/18 15:03 98.5 F 84 18 167/93 95 Intake and Output 02/20/18 02/21/18 02/21/18 22:59 06:59 14:59 Other: # Voids 3 Weight 77.111 kg 77.1 kg - Constitutional General appearance: no acute distress - Respiratory Respiratory: bilateral: CTA - Cardiovascular Rhythm: regular Heart sounds: normal: S1, S2 Abnormal Heart Sounds: systolic murmur Results 02/20/18 15:45 02/20/18 15:45 Cardiac Enzymes 02/20/18 02/20/18 02/20/18 Range/Units 15:45 15:45 21:24 AST 30 (14-36) U/L CK-MB (CK-2) 2.7 H 2.0 (0.0-2.4) ng/mL Troponin I <0.012 <0.012 (0.000-0.034) ng/mL 02/21/18 Range/Units 03:50 AST (14-36) U/L CK-MB (CK-2) 1.8 (0.0-2.4) ng/mL Troponin I <0.012 (0.000-0.034) ng/mL Coagulation 02/20/18 02/21/18 Range/Units 16:50 00:04 PT 9.8 (9.0-12.0) sec APTT 23.2 63.0 H (22.0-30.0) sec Lipids 02/20/18 Range/Units 15:45 Triglycerides 53 (<150) mg/dL Cholesterol 169 (<200) mg/dL HDL Cholesterol 90 H (40-60) mg/dL CBC 02/20/18 Range/Units 15:45 WBC 4.8 (3.8-10.6) k/uL RBC 4.60 (3.80-5.40) m/uL Hgb 12.6 (11.4-16.0) gm/dL Hct 38.8 (34.0-46.0) % Plt Count 202 (150-450) k/uL Comprehensive Metabolic Panel 02/20/18 Range/Units 15:45 Sodium 141 (137-145) mmol/L Potassium 4.1 (3.5-5.1) mmol/L Chloride 106 (98-107) mmol/L Carbon Dioxide 26 (22-30) mmol/L BUN 16 (7-17) mg/dL Creatinine 0.67 (0.52-1.04) mg/dL Glucose 79 (74-99) mg/dL Calcium 9.5 (8.4-10.2) mg/dL AST 30 (14-36) U/L ALT 34 (9-52) U/L Alkaline Phosphatase 103 (38-126) U/L Total Protein 6.9 (6.3-8.2) g/dL Albumin 4.1 (3.5-5.0) g/dL Current Medications Generic Name Dose Route Start Last Admin Trade Name Freq PRN Reason Stop Dose Admin Albuterol/Ipratropium 3 ml 02/21/18 08:00 02/21/18 07:44 Duoneb 0.5 Mg-3 Mg/3 Ml Soln INHALATION 3 ml RT-TID PRINCE Administration Albuterol/Ipratropium 3 ml 02/20/18 20:59 Duoneb 0.5 Mg-3 Mg/3 Ml Soln INHALATION RT-Q2H PRN Shortness Of Breath Or Wheezing Aspirin 325 mg 02/21/18 09:00 02/21/18 08:19 Aspirin PO 325 mg DAILY PRINCE Administration Atorvastatin Calcium 80 mg 02/20/18 21:00 02/21/18 00:05 Lipitor PO 80 mg HS PRINCE Administration Budesonide/Formoterol Fumarate 2 puff 02/20/18 20:00 02/21/18 07:44 Symbicort 160-4.5 Mcg Inhaler INHALATION 2 puff RT-BID PRINCE Administration Calcium Carbonate 1 each 02/21/18 12:00 Oscal 500+D PO 1200 PRINCE Diltiazem HCl 180 mg 02/21/18 09:00 02/21/18 08:19 Cardizem Cd PO 180 mg DAILY PRINCE Administration Gabapentin 200 mg 02/20/18 21:00 02/21/18 08:19 Neurontin PO 200 mg BID PRINCE Administration Heparin Sodium/Sodium Chloride 500 mls @ 18.5 mls/hr 02/20/18 17:00 02/20/18 17:54 25,000 unit/ Sodium Chloride IV 12 units/kg/hr .Q24H PRINCE 18.5 mls/hr Administration Protocol 12 UNITS/KG/HR Sodium Chloride 1,000 mls @ 20 mls/hr 02/20/18 17:00 02/20/18 17:52 Saline 0.9% IV 20 mls/hr .Q24H PRINCE Administration Levothyroxine Sodium 100 mcg 02/21/18 06:30 02/21/18 08:19 Synthroid PO 100 mcg 0630 PRINCE Administration Nitroglycerin 1 inch 02/20/18 18:00 02/21/18 06:40 Nitro-Bid Oint TOPICAL 1 inch Q6HR PRINCE Administration Nitroglycerin 0.4 mg 02/20/18 16:52 Nitrostat SUBLINGUAL Q5M PRN Chest Pain Patient's Own Med ( 70 mg 02/21/18 06:00 02/21/18 09:30 Alendronate Sodium [ PO Not Given Fosamax] 70 Mg) Hernández@0600 PRINCE Intake and Output 02/20/18 02/21/18 02/21/18 22:59 06:59 14:59 Other: # Voids 3 Weight 77.111 kg 77.1 kg Patient Weight 02/22/18 06:59 Weight 77.1 kg 02/20/18 15:45 02/20/18 15:45 Assessment and Plan Assessment: Assessment #1 chest discomfort #2 hypertension #3 dyslipidemia #4 hypothyroidism Plan #1 the patient was ruled out for acute coronary event #2 severe underlying CAD to be ruled out #3 we will obtain an echocardiogram was Doppler #4 stress test to be done tomorrow morning. Thank you for allowing us participate in her care and we'll continue following up with the patient.
[2018-02-21] MEDS: CALCIUM CARB-VIT D 500MG-200UN 1 EACH TAB PO SCH (14:35)
--- NOTE | 2018-02-21 17:22 | P.HPIM ---
History of Present Illness H&P Date: 02/21/18 Chief Complaint: Chest pain This is 67 years old female who presented to the emergency department with new onset chest pain. Patient stated that she just returned from a road trip, 800 Miles, and yesterday evening was sitting watching TV where she experienced some sharp chest pain causing her chest all the way from right to left described it as stabbing, radiation from right to left without radiation to the left arm or left neck, denied any nausea or vomiting or diaphoresis. Patient stated that the pain was fluctuating but never went away completely until she got to the emergency department and they started heparin drip on her and that made her feel better. In the emergency department EKG was done which showed no ST or T- wave abnormality and patient was started on heparin drip and admitted to the cardiac floor. Patient currently is still in the emergency department denying chest pain, shortness breath, nausea, vomiting, abdominal pain, dizziness, lightheadedness or blurry vision. Patient denying his recent upper respiratory infection and stated that her asthma has been under good control Review of Systems All 14 systems reviewed and negative except as above Past Medical History Past Medical History: COPD, Hyperlipidemia, Thyroid Disorder Additional Past Medical History / Comment(s): Thyroid removed History of Any Multi-Drug Resistant Organisms: None Reported Additional Past Surgical History / Comment(s): thyroidectomy, gallbladder removed, right knee athroscopy,. Plastic tubal Past Anesthesia/Blood Transfusion Reactions: No Reported Reaction Past Psychological History: No Psychological Hx Reported Smoking Status: Former smoker Past Alcohol Use History: None Reported Past Drug Use History: None Reported - Past Family History Father Additional Family Medical History / Comment(s): Father had cardiac history, two open heart procedures Brother(s) Family Medical History: Myocardial Infarction ([place]) Additional Family Medical History / Comment(s): Brother is decreased from [place] Medications and Allergies Home Medications Medication Instructions Recorded Confirmed Type Albuterol Inhaler [Ventolin Hfa 1 - 2 puff INHALATION RT-Q6H PRN 08/01/17 History Inhaler] Alendronate Sodium [Fosamax] 70 mg PO CARDONA 08/01/17 02/20/18 History Atorvastatin [Lipitor] 80 mg PO HS 08/01/17 02/20/18 History Budesonide/Formoterol Fumarate 2 puff INHALATION RT-BID 08/01/17 02/20/18 History [Symbicort 160-4.5 Mcg Inhaler] Diltiazem HCl [Diltiazem 24Hr ER] 180 mg PO DAILY 08/01/17 02/20/18 History Levothyroxine Sodium [Synthroid] 100 mcg PO DAILY 08/01/17 02/20/18 History Aspirin [Adult Low Dose Aspirin EC] 81 mg PO DAILY 01/17/18 02/20/18 History Calcium Carbonate/Vitamin D3 1 cap PO DAILY 01/17/18 02/20/18 History [Calcium 600-Vit D3 500 Softgel] Gabapentin [Neurontin] 200 mg PO BID 01/17/18 02/20/18 History Allergies Allergy/AdvReac Type Severity Reaction Status Date / Time No Known Allergies Allergy Verified 02/20/18 15:34 Physical Exam Vitals: Vital Signs Temp Pulse Pulse Resp BP BP Pulse Ox 02/21/18 13:29 76 02/21/18 13:20 80 02/21/18 12:00 98.1 F 72 16 142/82 97 02/21/18 10:53 18 137/81 96 02/21/18 08:00 98.7 F 71 18 137/81 96 02/21/18 07:56 72 02/21/18 07:46 68 02/21/18 07:15 98.4 F 70 18 120/77 96 02/21/18 06:29 76 18 120/76 97 02/21/18 03:09 96 02/21/18 03:05 72 18 143/80 93 L 02/21/18 01:37 75 18 141/73 95 02/21/18 00:07 98.2 F 72 18 141/73 95 02/20/18 22:47 98.2 F 78 18 131/71 94 L 02/20/18 20:18 98.2 F 66 18 151/80 96 02/20/18 20:00 98.1 F 71 18 137/81 96 02/20/18 19:13 98.2 F 74 18 135/81 95 02/20/18 17:50 77 18 167/91 95 Intake and Output 02/21/18 02/21/18 02/21/18 06:59 14:59 22:59 Other: # Voids 3 Weight 77.1 kg Lungs : Clear to auscultation bilaterally Heart: Normal S1 and S2 Abdomen: Soft, no tenderness, positive bowel sounds in all 4 quadrants Skin: No new rash Psych: Alert and oriented at baseline mental status Nerve exam revealed intact cranial nerves II-12, normal deep tendon reflexes Musculoskeletal with normal examination Results CBC & Chem 7: 02/20/18 15:45 02/20/18 15:45 Labs: Abnormal Lab Results - Last 24 Hours (Table) 02/20/18 02/20/18 02/21/18 Range/Units 15:45 16:50 00:04 APTT 63.0 H (22.0-30.0) sec D-Dimer 0.66 H (<0.60) mg/L FEU HDL Cholesterol 90 H (40-60) mg/dL Thrombosis Risk Factor Assmnt - Choose All That Apply Each Factor Represents 1 point: Obesity (BMI >25), Swollen legs (current) Each Risk Factor Represents 2 Points: Age 61-74 years Thrombosis Risk Factor Assessment Total Risk Factor Score: 4 Thrombosis Risk Factor Assessment Level: Moderate Risk Assessment and Plan Assessment: 1. New onset chest pain, atypical 2. Hypertension. 3. Hyperlipidemia. 4. Asthma moderate persistent. 5. Hypothyroidism. 6. Peripheral neuropathy. I have discussed with the patient current treatment plan and she agreed to stay overnight and perform stress testing in the morning I's pretest probability is intermediate and patient may benefit from stress test in the morning to be determined by cardiology and we will continue monitoring vital signs closely during this hospital stay and resume home medication with holding parameters for her blood pressure
[2018-02-21] MEDS: HEPARIN SOD,PORK IN 0.45% NACL 25,000 UNIT in 0.45% NACL 1 500ML.BAG IV SCH ×2 (18:19→20:06)
[2018-02-21] MEDS: SODIUM CHLORIDE 0.9% 1,000 ML IV SCH (18:19)
[2018-02-21 20:45] VITALS: RESP 18
[2018-02-22] MEDS: HEPARIN SOD,PORK IN 0.45% NACL 25,000 UNIT in 0.45% NACL 1 500ML.BAG IV SCH (01:34)
[2018-02-22] MEDS ORDERED: CAFFEINE CITRATE 60 MG/3 ML VIAL IV PRN (05:00)
[2018-02-22] MEDS: NITROGLYCERIN OINT 1 INCH/GM PACKET TOPICAL SCH ×2 (06:09→11:24)
[2018-02-22] MEDS: LEVOTHYROXINE 100 MCG TAB PO SCH (06:09)
[2018-02-22] MEDS: GABAPENTIN 100 MG CAP PO SCH (07:54)
[2018-02-22] MEDS ORDERED: REGADENOSON 0.4 MG/5 ML SYRINGE IV ONE (08:00)
[2018-02-22] MEDS: IPRATROPIUM-ALBUTEROL 3 ML NEB INHALATION SCH ×2 (08:40→13:11)
[2018-02-22] MEDS: SYMBICORT 160-4.5 MCG INHALER INHALATION SCH (08:40)
[2018-02-22] MEDS: DILTIAZEM CD 180 MG CAP.ER.24H PO SCH (09:59)
[2018-02-22] MEDS: CALCIUM CARB-VIT D 500MG-200UN 1 EACH TAB PO SCH (09:59)
[2018-02-22] MEDS: ASPIRIN 325 MG TAB PO SCH (09:59)
--- NOTE | 2018-02-22 10:11 | NM ---
EXAMINATION TYPE: NM stress lexiscan cardiolite DATE OF EXAM: 02/22/2018 COMPARISON: NONE HISTORY: Pain TECHNIQUE: After the intravenous administration of 10.23 mCi Tc 99m Sestamibi - Cardiolite resting S PECT images acquired 45 minutes post injection. The patient received 0.4mg Lexiscan, 25.1 mCi Tc 99m Sestamibi - Stress images obtained [address] injection FINDINGS: Review of stress and rest SPECT images demonstrates no distinct perfusion abnormality. Gated analysi s shows normal wall motion with an estimated left ventricular ejection fraction of 65 %. IMPRESSION: No scintigraphic evidence for reversible ischemia.
--- NOTE | 2018-02-22 10:34 | CDI ---
Last Revision, April 2017 Documentation Clarification Form Date: 02/22/18 From: Grace Parekh RN Admit Date: 02/20/2018 4:52:00 PM Patient Name: Olena Agustin Visit Number: [id number] ATTENTION: The Clinical Documentation Specialists (CDI) and [facility] Coding Staff appreciate your assistance in clarifying documentation. Please respond to the clarification below the line at the bottom and electronically sign. The CDI & [facility] Coding staff will review the response and follow-up if needed. Please note: Queries are made part of the Legal Health Record. If you have any questions, please contact the author of this message via ITS. Yanely Jenkins MD, Documentation of COPD is located in the H&P. Admitted for unstable angina pectoris, COPD History/Risk Factors: COPD, hyperlipidemia, thyroid disorder, x smoker Clinical Indicators: CXR: COPD without acute cardiopulmonary process Vital Signs on admission: T 98.5, P 84, R 18, 167/93, 95% RA Lung and Respiratory Assessment: decreased breath sounds Treatment: Nebulizers: Douneb, symbicort In your professional opinion, can you please clarify if the above findings and treatment signify any of the following? Acute Exacerbation of Chronic Obstructive Pulmonary Disease (COPD) Acute on chronic bronchitis Chronic obstructive pulmonary disease with acute lower respiratory infection Emphysema Other condition, please specify Unable to determine MTDD
--- NOTE | 2018-02-22 10:42 | P.PN ---
Subjective Progress Note Date: 02/22/18 Principal diagnosis: Chest pain This is a pleasant 67-year-old female patient with a past medical history significant for hypertension and dyslipidemia presented to the emergency room complaining of chest discomfort. The patient just came from a long trip from [place]. She was in her usual state of health until yesterday when she was at home and started experiencing discomfort, across the chest, as a sharp kind of discomfort, with some radiation to the neck. No associated symptoms of shortness of breath, sweating, nausea or vomiting, or syncope. The patient is not aware of any prior history of coronary artery disease. She does have hypertension as well as dyslipidemia. She stated that she underwent a heart catheterization about 10 years ago and she was told that she has problem in the "bottom of the heart". She is to be seen by Dr. Schroeder in the past but currently she follows with Dr. Espinosa. The patient does not smoke. She does have fairly significant family history of coronary artery disease was multiple brothers with CAD. The patient was ruled out for acute coronary event. The EKG showed sinus rhythm was RBBB. 3 sets of cardiac enzymes were checked and came in to be unremarkable. The chest x-ray did not show any acute abnormalities. She was ruled out also for PE. She has been maintaining normal blood pressure as well as normal heart rate wire she is here. The patient was seen and evaluated in the emergency room. On follow-up with the patient today, 02/22/2018, she stated that she is chest pain-free. She underwent a stress test came in to be unremarkable for ischemia. From the cardiac vascular standpoint of view, she can be discharged home. Objective - Vital Signs Vital signs: Vital Signs Temp 98.1 F 02/22/18 08:00 Pulse 67 02/22/18 08:00 Resp 18 02/22/18 08:00 BP 142/78 02/22/18 08:00 Pulse Ox 94 L 02/22/18 08:00 Intake & Output 02/21/18 02/22/18 02/22/18 18:59 06:59 18:59 Intake Total 600 Balance 600 Weight 77.1 kg 81.9 kg Intake: Intake, IV Titration 500 Amount Heparin Sod,Pork in 0.45% 500 NaCl 25,000 unit In 0.45 % NaCl 1 500ml.bag @ 12 UNITS/KG/HR 18.5 mls/hr IV .Q24H PRINCE Rx#: [id number] Oral 100 Other: Voiding Method Toilet Toilet # Voids 1 1 - Constitutional General appearance: Present: no acute distress - Respiratory Respiratory: bilateral: CTA - Cardiovascular Rhythm: regular Heart sounds: normal: S1, S2 - Labs CBC & Chem 7: 02/20/18 15:45 02/20/18 15:45 Labs: Abnormal Lab Results - Last 24 Hours (Table) 02/21/18 02/22/18 Range/Units 21:39 06:15 APTT 34.4 H 43.3 H (22.0-30.0) sec Assessment and Plan Assessment: Assessment #1 chest discomfort #2 hypertension #3 dyslipidemia #4 hypothyroidism Plan #1 the patient was ruled out for acute coronary event #2 the stress test showed no ischemia. From a cardiovascular standpoint overview she can be discharged home.
--- NOTE | 2018-02-22 11:07 | EST ---
EXERCISE STRESS AGE: 67 SEX: F HT: 5'5' WT: 175 PROTOCOL: Lexiscan Cardiolite Stress Test HEART RATE REST: 68 BLOOD PRESSURE REST: 143/72 MAXIMUM HEART RATE ACHIEVED: 99 MAXIMUM BLOOD PRESSURE: 164/81 85% MPHR: 130 100% MPHR: 153 INDICATIONS: Chest pain. CLINICAL INFORMATION: Baseline heart rate 68 beats per minute. Baseline blood pressure 143/72 mmHg. Patient shows sinus rhythm with a bundle branch block with normal axis and intervals. Patient received Lexiscan scan infusion per protocol. Heart and blood pressure remained stable. No ECG evidence for ischemia. No arrhythmias. Nuclear portion will be reported separately. MMODL / IJN: [id number] /
[2018-02-22 12:29] VITALS: BP 143/72; PULSE 77; TEMP 97.7
--- NOTE | 2018-02-22 13:45 | CT ---
EXAMINATION TYPE: CT angio chest DATE OF EXAM: 02/22/2018 COMPARISON: NONE HISTORY: Difficulty in breathing. Chest pain CT DLP: 263.4 mGycm. Automated Exposure Control for Dose Reduction was Utilized. CONTRAST: CTA scan of the thorax is performed with IV Contrast, patient injected with 100 mL of Isovue 370, pul monary embolism protocol. MIP Images are created on CT scanner and reviewed. FINDINGS: LUNGS: There are moderate centrilobular emphysematous changes throughout the lungs. Linear bibasilar pleural-parenchymal scarring is present. Very minimal biapical pleural parenchymal scarring is also s een. Within the right upper lobe laterally there is a 4 mm solid pulmonary nodule on image 56 of lung algo rithm. Mild diffuse peribronchial cuffing is noted, greatest within the lower lobes. No pulmonary mas ses seen. No focal consolidation, pleural effusion or pneumothorax. The main tracheobronchial tree is patent. MEDIASTINUM: There is satisfactory enhancement of the pulmonary artery and its branches, there is no CT evidence for pulmonary embolism. There are no greater than 1 cm hilar or mediastinal lymph nodes. No cardiomegaly or pericardial effusion is seen. Moderate coronary artery calcifications are prese nt OTHER: There is a moderate to large hiatal hernia with surgical clips at the gastroesophageal junctio n, possibly from prior Gayatri fundoplication. Gallbladder surgically absent. Minimal multilevel degen erative changes of thoracic spine are seen. IMPRESSION: 1. No evidence of pulmonary embolus. 2. Mild diffuse peribronchial cuffing that may be reactive in this patient with moderate underlying p ulmonary emphysema or relate to infectious etiology such as bronchitis. 3. 4 mm solid right pulmonary nodule for which follow-up CT in 12 months is recommended to determine stability given the size and composition of this pulmonary nodule. 4. Moderate to large hiatal hernia with postsurgical changes at the gastroesophageal junction.
--- NOTE | 2018-02-22 16:36 | P.DS ---
Providers Date of admission: 02/20/18 16:52 Expected date of discharge: 02/22/18 Attending physician: Yanely Stearns Consults: 02/20/18 16:52 Consult Physician Urgent Consulting Provider: Wallace Espinosa Consult Reason/Comments: Chest pain Do you want consulting provider notified?: Yes Primary care physician: [facility] Course: This is 67 years old female who presented to the emergency department with new onset chest pain. Patient stated that she just returned from a road trip, 800 Miles, and yesterday evening was sitting watching TV where she experienced some sharp chest pain causing her chest all the way from right to left described it as stabbing, radiation from right to left without radiation to the left arm or left neck, denied any nausea or vomiting or diaphoresis. Patient stated that the pain was fluctuating but never went away completely until she got to the emergency department and they started heparin drip on her and that made her feel better. In the emergency department EKG was done which showed no ST or T- wave abnormality and patient was started on heparin drip and admitted to the cardiac floor. Patient currently is still in the emergency department denying chest pain, shortness breath, nausea, vomiting, abdominal pain, dizziness, lightheadedness or blurry vision. Patient denying his recent upper respiratory infection and stated that her asthma has been under good control 02/22: Patient states she feels much better today. She underwent stress testing that came back negative and she has been cleared for discharge by cardiology. She ambulated in the hallway and lowest pulse ox was 91%. CTA of the chest ordered due to elevated d-dimer of 0.68. CTA revealed no pulmonary embolism. Mild diffuse peribronchial cuffing may be bronchitis with underlying pulmonary emphysema. 4 mm solid right pulmonary nodule with recommendations for follow- up CAT scan in 12 months. Moderate to large hiatal hernia with post surgical changes at the gastroesophageal junction. Patient was added and Clement azithromycin for bronchitis and discharged home today in stable condition. Discharge diagnoses: 1. New onset chest pain, atypical. Acute coronary syndrome ruled out. 2. Hypertension. 3. Hyperlipidemia. 4. Asthma moderate persistent. 5. Hypothyroidism. 6. Peripheral neuropathy. 7. Bronchitis Discharge plan: Home Impression and plan of care have been directed as dictated by the signing physician. Lynn Velázquez nurse practitioner acting as scribe for signing physician. Patient Condition at Discharge: Good Plan - Discharge Summary New Discharge Prescriptions: New Azithromycin [Zithromax Z-pack] 0 mg PO DIRECTED #6 tab No Action Budesonide/Formoterol Fumarate [Symbicort 160-4.5 Mcg Inhaler] 2 puff INHALATION RT-BID Albuterol Inhaler [Ventolin Hfa Inhaler] 1 - 2 puff INHALATION RT-Q6H PRN PRN Reason: Shortness Of Breath Levothyroxine Sodium [Synthroid] 100 mcg PO DAILY Diltiazem HCl [Diltiazem 24Hr ER] 180 mg PO DAILY Atorvastatin [Lipitor] 80 mg PO HS Alendronate Sodium [Fosamax] 70 mg PO CARDONA Gabapentin [Neurontin] 200 mg PO BID Calcium Carbonate/Vitamin D3 [Calcium 600-Vit D3 500 Softgel] 1 cap PO DAILY Aspirin [Adult Low Dose Aspirin EC] 81 mg PO DAILY Discharge Medication List Albuterol Inhaler [Ventolin Hfa Inhaler] 1 - 2 puff INHALATION RT-Q6H PRN [History] Alendronate Sodium [Fosamax] 70 mg PO CARDONA 08/01/17 [History] Atorvastatin [Lipitor] 80 mg PO HS 08/01/17 [History] Budesonide/Formoterol Fumarate [Symbicort 160-4.5 Mcg Inhaler] 2 puff INHALATION RT-BID 08/01/17 [History] Diltiazem HCl [Diltiazem 24Hr ER] 180 mg PO DAILY 08/01/17 [History] Levothyroxine Sodium [Synthroid] 100 mcg PO DAILY 08/01/17 [History] Aspirin [Adult Low Dose Aspirin EC] 81 mg PO DAILY 01/17/18 [History] Calcium Carbonate/Vitamin D3 [Calcium 600-Vit D3 500 Softgel] 1 cap PO DAILY [History] Gabapentin [Neurontin] 200 mg PO BID 01/17/18 [History] Azithromycin [Zithromax Z-pack] 0 mg PO DIRECTED #6 tab 02/22/18 [Rx] Follow up Appointment(s)/Referral(s): Wallace Espinosa MD [STAFF PHYSICIAN] - 02/24/18 9:00 am (Thursday) Elpidio Bateman MD [Primary Care Provider] - 03/01/18 11:00 am (Thursday with Karen [employer]) Discharge Disposition: HOME SELF-CARE
--- NOTE | 2018-02-22 19:24 | ECHOF ---
Referral Reason:cp MEASUREMENTS -------- HEIGHT: 165.1 cm WEIGHT: 81.6 kg BP: 117/63 RVIDd: 3.3 cm (< 3.3) IVSd: 1.0 cm (0.6 - 1.1) LVIDd: 3.9 cm (3.9 - 5.3) LVPWd: 1.1 cm (0.6 - 1.1) IVSs: 1.5 cm LVIDs: 2.6 cm LVPWs: 1.5 cm LA Diam: 3.3 cm (2.7 - 3.8) LAESV Index (A-L): 31.50 ml/m Ao Diam: 3.2 cm (2.0 - 3.7) AV Cusp: 2.0 cm (1.5 - 2.6) EPSS: 0.6 cm MV E Babar: 0.90 m/s MV DecT: 242 ms MV A Babar: 1.06 m/s MV E/A Ratio: 0.85 RAP: 5.00 mmHg RVSP: 16.63 mmHg MV EF SLOPE: 73.09 mm/s (70 - 150) MV EXCURSION: 1.67 cm (> 18.000) FINDINGS -------- Sinus rhythm. This was a technically adequate study. The left ventricular size is normal. There is borderline concentric left ventricular hypertrophy. Overall left ventricular systolic function is normal with, an EF between 55 - 60 %. The right ventricle is mildly enlarged. LA is midly dilated 29-33ml/m2. The right atrium is normal in size. The aortic valve is trileaflet and appears structurally normal. There is trace to mild mitral regurgitation. Trace tricuspid regurgitation present. Right ventricular systolic pressure is normal at < 35 mmHg. The pulmonic valve was not well visualized. The aortic root size is normal. Normal inferior vena cava with normal inspiratory collapse consistent with estimated right atrial pre ssure of 5 mmHg. The inferior vena cava is mildly dilated. There is no pericardial effusion. CONCLUSIONS -------- 1. Sinus rhythm. 2. This was a technically adequate study. 3. The left ventricular size is normal. 4. There is borderline concentric left ventricular hypertrophy. 5. Overall left ventricular systolic function is normal with, an EF between 55 - 60 %. 6. The right ventricle is mildly enlarged. 7. LA is midly dilated 29-33ml/m2. 8. The right atrium is normal in size. 9. The aortic valve is trileaflet and appears structurally normal. 10. There is trace to mild mitral regurgitation. 11. Trace tricuspid regurgitation present. 12. Right ventricular systolic pressure is normal at < 35 mmHg. 13. The pulmonic valve was not well visualized. 14. The aortic root size is normal. 15. Normal inferior vena cava with normal inspiratory collapse consistent with estimated right atrial pressure of 5 mmHg. 16. The inferior vena cava is mildly dilated. 17. There is no pericardial effusion. [employer]ELOPER: CAREN Villa
== END 2018-02-22 14:43 | disposition home or self-care (01) | DRG 313 ==
LOC: EC 14:56 → 3SCARD 16:52
PROVIDERS: ADMIT Internal Medicine; ATTEND Internal Medicine
DX: R07.89 Other chest pain (principal); J44.0 Chronic obstructive pulmonary disease with (acute) lower respiratory infection; E78.5 Hyperlipidemia, unspecified; E89.0 Postprocedural hypothyroidism; G62.9 Polyneuropathy, unspecified; I10 Essential (primary) hypertension; I45.10 Unspecified right bundle-branch block; J45.40 Moderate persistent asthma, uncomplicated; J20.9 Acute bronchitis, unspecified; Z79.51 Long term (current) use of inhaled steroids; Z79.82 Long term (current) use of aspirin; Z79.83 Long term (current) use of bisphosphonates; Z82.49 Family history of ischemic heart disease and other diseases of the circulatory system; Z87.891 Personal history of nicotine dependence; Z79.890 Hormone replacement therapy
CPT/HCPCS: 36415; 71046; 71275; 78452; 80053; 80061; 82550; 82553; 83735; 83880; 84484; 85025; 85379; 85610; 85730; 93005; 93017; 93306; 94640; 96365; 96366; 96376; 99291